=== PATIENT | male | born 2005 | race Caucasian/White ===

== ENCOUNTER 2024-04-16 11:37 | Inpatient (IN) | payer MEDICARE, MEDICAID ==
[~2024-04-16] VITALS: Ht 177.8 cm; Wt 189.2 kg
[2024-04-16] MEDS ORDERED: SERT-162 PO (12:06)
[2024-04-16] MEDS ORDERED: RISPC50 IM (12:06)
[2024-04-16] MEDS ORDERED: METF-1211 PO (12:06)
[2024-04-16] MEDS ORDERED: NALT50TA33 PO (12:06)
[2024-04-16] MEDS ORDERED: TRAZ150T80 PO (12:06)
[2024-04-16] MEDS ORDERED: PROP20TA18 PO (12:06)
[2024-04-16] MEDS ORDERED: PALI234D IM (12:06)
[2024-04-16 15:41] VITALS: BP 143/89; PULSE 95; RESP 17; TEMP 96.6; O2SAT 96
[2024-04-16] MEDS: INFLUENZA VIRUS VACCINE TVS (6MO+) 2024-25/PF 45 MCG/0.5 ML SYRINGE IM. ONE (16:15)
[2024-04-16] MEDS: LORazepam 2 MG TABLET PO PRN (16:29)
[2024-04-16 20:20] VITALS: BP 132/75; PULSE 91; RESP 18; TEMP 98.3; O2SAT 99
[2024-04-16] MEDS: ZOLPIDEM TARTRATE 10 MG TABLET PO PRN (20:44)
[2024-04-17 08:22] LABS: BASOPHILS % (AUTO) 0.6 % (0.0-2.0); EOSINOPHILS % (AUTO) 0.6 % (1.0-6.0); HEMATOCRIT 35.7 % (41-53); HEMOGLOBIN 11.6 g/dL (13.5-17.5); LYMPHOCYTES % (AUTO) 32.1 % (22.0-44.0); MEAN CORPUSCULAR HEMOGLOBIN 25.6 pg (26.0-34.0); MEAN CORPUSCULAR HGB CONC 32.4 G/dL (31.0-37.0); MEAN CORPUSCULAR VOLUME 79 fL (80-100); MONOCYTES # (AUTO) 0.7 K/uL (0.1-1.0); NEUTROPHILS # (AUTO) 5.4 K/uL (1.8-7.7); NEUTROPHILS % (AUTO) 58.7 % (40.0-70.0); PLATELET COUNT (AUTO) 264 K/uL (150-450); RED BLOOD CELL COUNT(AUTO) 4.51 MIL/uL (4.50-5.90); WHITE BLOOD COUNT (AUTO) 9.2 K/uL (4.5-11.0)
[2024-04-17 08:33] LABS: HEMOGLOBIN A1C 5.9 % (3.8-5.6)
[2024-04-17 08:52] LABS: ALANINE AMINOTRANSFERASE 35 U/L (12-78); ALBUMIN 3.4 g/dL (3.4-5.0); ALKALINE PHOSPHATASE 102 U/L (46-116); ANION GAP 8 mmol/L (8-16); ASPARTATE AMINOTRANSFERASE 17 U/L (15-37); BILIRUBIN,TOTAL 0.4 mg/dL (0.1-1.0); CALCIUM, TOTAL 8.7 mg/dL (8.8-10.5); CARBON DIOXIDE 28 mmol/L (22-29); CHLORIDE 106 mmol/L (98-107); CHOLESTEROL 157 mg/dL (131-200); CREATININE 0.85 mg/dL (0.60-1.30); FREE T4 (FREE THYROXINE) 1.16 ng/dL (0.76-1.46); GLOMERULAR FILTR. RATE CALC > 60 mL/min (>60); GLUCOSE,RANDOM 97 mg/dL (70-110); HDL CHOLESTEROL 39 mg/dL (40-60); LDL CHOL (CALC.) 102 mg/dL (0-130); POTASSIUM 3.9 mmol/L (3.5-5.1); SODIUM SERUM 142 mmol/L (136-145); T4 (THYROXINE) 8.1 mcg/dL (4.7-13.3); THYROID STIMULATING HORMONE 2.31 uIU/mL (0.36-3.74); TOTAL PROTEIN, SERUM 6.8 g/dL (6.4-8.2); TRIGLYCERIDES 79 mg/dL (15-150); UREA NITROGEN, BLOOD 9 mg/dL (7-18)
[2024-04-17 09:10] VITALS: BP 106/72; PULSE 60; RESP 16; TEMP 97.2; O2SAT 98
[2024-04-17] MEDS: PROPRANOLOL HCL 10 MG TABLET PO SCH (12:20)
[2024-04-17] MEDS: MetFORMIN HCL 500 MG TABLET PO SCH (16:03)
[2024-04-17 20:23] VITALS: BP 138/76; PULSE 86; RESP 18; TEMP 97.1; O2SAT 99
[2024-04-17] MEDS: TraZODone HCL 150 MG TABLET PO SCH (20:25)
[2024-04-17] MEDS: NALTREXONE HCL 50 MG TABLET PO SCH (20:26)
[2024-04-18 08:02] VITALS: BP 127/74; PULSE 69; RESP 17; TEMP 97.1; O2SAT 96
[2024-04-18] MEDS: SERTRALINE HCL 100 MG TABLET PO SCH (08:09)
[2024-04-18 20:33] VITALS: BP 134/72; PULSE 76; RESP 18; TEMP 98.4; O2SAT 97
[2024-04-19 08:22] VITALS: BP 127/60; PULSE 63; RESP 17; TEMP 98.2; O2SAT 96
[2024-04-19 12:55] LABS: APPEARANCE,URINE CLEAR (CLEAR); BILIRUBIN,URINE NEGATIVE (NEGATIVE); COLOR,URINE LIGHT YELLOW (YELLOW); GLUCOSE, URINE (UA) NEGATIVE (NEGATIVE); KETONES,URINE NEGATIVE (NEGATIVE); LEUKOCYTE ESTERASE ,URINE NEGATIVE (NEGATIVE); NITRATE,URINE NEGATIVE (NEGATIVE); OCCULT BLOOD,URINE NEGATIVE (NEGATIVE); PH,URINE 5.5 (5.0-8.0); PH,URINE DRUG SCREEN 5.5 (5.0-8.0); PROTEIN,URINE NEGATIVE (NEGATIVE); UROBILINOGEN,URINE <=1.0 mg/dL (<=1.0)
[2024-04-19 13:01] LABS: ALCOHOL, URINE DRUG SCREEN NEGATIVE (NEGATIVE); CANNABINOID SCREEN,URINE POSITIVE (NEGATIVE)
[2024-04-19 13:02] LABS: AMPHET/METH SCREEN,URINE NEGATIVE (NEGATIVE); BARBITURATE SCREEN, URINE NEGATIVE (NEGATIVE); BENZODIAZEPINES SCREEN,URINE NEGATIVE (NEGATIVE); COCAINE SCREEN,URINE NEGATIVE (NEGATIVE); METHADONE SCREEN, URINE NEGATIVE (NEGATIVE); OPIATE SCREEN,URINE NEGATIVE (NEGATIVE); PHENCYCLIDINE SCREEN,URINE NEGATIVE (NEGATIVE)
[2024-04-19] MEDS ORDERED: HydrOXYzine PAMOATE 50 MG CAPSULE PO PRN (17:45)
[2024-04-19] MEDS ORDERED: ACETAMINOPHEN 325 MG TABLET PO PRN (17:45)
[2024-04-19] MEDS ORDERED: LOPERAMIDE HCL 2 MG CAPSULE PO PRN (17:45)
[2024-04-19] MEDS ORDERED: MAGNESIUM HYDROXIDE SUSPENSION 30 ML UDCUP PO PRN (17:45)
[2024-04-19] MEDS ORDERED: GuaiFENesin/D-METHORPHAN [SUGAR-FREE] 200-20MG/10 ML SYRUP UDCUP PO PRN (17:45)
[2024-04-19 20:30] VITALS: BP 130/59; PULSE 77; RESP 18; TEMP 96.4; O2SAT 97
[2024-04-20 08:29] LABS: BASOPHILS % (AUTO) 0.5 % (0.0-2.0); EOSINOPHILS % (AUTO) 0.8 % (1.0-6.0); HEMATOCRIT 36.3 % (41-53); HEMOGLOBIN 11.8 g/dL (13.5-17.5); LYMPHOCYTES # (AUTO) 3.5 K/uL (1.0-4.8); LYMPHOCYTES % (AUTO) 36.2 % (22.0-44.0); MEAN CORPUSCULAR HEMOGLOBIN 25.8 pg (26.0-34.0); MEAN CORPUSCULAR HGB CONC 32.5 G/dL (31.0-37.0); MEAN CORPUSCULAR VOLUME 79 fL (80-100); MONOCYTES # (AUTO) 0.8 K/uL (0.1-1.0); MONOCYTES % (AUTO) 8.5 % (2.0-9.0); NEUTROPHILS # (AUTO) 5.3 K/uL (1.8-7.7); PLATELET COUNT (AUTO) 284 K/uL (150-450); RED BLOOD CELL COUNT(AUTO) 4.58 MIL/uL (4.50-5.90); RED CELL DISTRIBUTION WIDTH 15.8 % (11.5-14.5); WHITE BLOOD COUNT (AUTO) 9.8 K/uL (4.5-11.0)
[2024-04-20] MEDS: FOLIC ACID 1 MG TABLET PO SCH (08:32)
[2024-04-20] MEDS: MULTIVITAMINS WITH MINERALS, THERAPEUTIC TABLET PO SCH (08:32)
[2024-04-20] MEDS: DIVALPROEX SODIUM 500 MG ER TABLET PO SCH (08:33)
[2024-04-20] MEDS: THIAMINE 100 MG TABLET PO SCH (08:33)
[2024-04-20 08:40] VITALS: BP 113/64; PULSE 61; RESP 16; TEMP 97.9; O2SAT 96
[2024-04-20 08:48] LABS: HEMOGLOBIN A1C 5.9 % (3.8-5.6)
[2024-04-20 08:57] LABS: ALANINE AMINOTRANSFERASE 33 U/L (12-78); ALBUMIN 3.3 g/dL (3.4-5.0); ALKALINE PHOSPHATASE 96 U/L (46-116); ANION GAP 8 mmol/L (8-16); ASPARTATE AMINOTRANSFERASE 14 U/L (15-37); BILIRUBIN,TOTAL 0.3 mg/dL (0.1-1.0); CALCIUM, TOTAL 8.6 mg/dL (8.8-10.5); CARBON DIOXIDE 28 mmol/L (22-29); CHLORIDE 102 mmol/L (98-107); CHOL/HDL RATIO 3.8 (4.2-7.3); CHOLESTEROL 144 mg/dL (131-200); CREATININE 0.91 mg/dL (0.60-1.30); FREE T4 (FREE THYROXINE) 1.09 ng/dL (0.76-1.46); GLOMERULAR FILTR. RATE CALC > 60 mL/min (>60); GLUCOSE,RANDOM 86 mg/dL (70-110); HDL CHOLESTEROL 38 mg/dL (40-60); LDL CHOL (CALC.) 91 mg/dL (0-130); POTASSIUM 3.9 mmol/L (3.5-5.1); SODIUM SERUM 138 mmol/L (136-145); THYROID STIMULATING HORMONE 2.12 uIU/mL (0.36-3.74); TOTAL PROTEIN, SERUM 6.9 g/dL (6.4-8.2); TRIGLYCERIDES 76 mg/dL (15-150); UREA NITROGEN, BLOOD 7 mg/dL (7-18)
[2024-04-20] MEDS: PROMETHAZINE HCL 25 MG TABLET PO PRN (10:00)
[2024-04-20 17:00] VITALS: BP 114/60; PULSE 94; RESP 18; O2SAT 98
[2024-04-20] MEDS: TUBERCULIN, PURIFIED PROTEIN DERIVATIVE 5 TU/0.1 ML SYRINGE ID ONE (18:20)
[2024-04-20 20:14] VITALS: BP 114/60; PULSE 56; RESP 18; TEMP 96; O2SAT 99
[2024-04-21 08:08] VITALS: BP 122/60; PULSE 60; RESP 17; TEMP 96.9; O2SAT 95
[2024-04-21 16:30] VITALS: BP 128/72; PULSE 80; RESP 18
[2024-04-21] MEDS: VALPROIC ACID 250 MG/5 ML SOLUTION UDCUP PO SCH (19:04)
[2024-04-21 20:27] VITALS: BP 128/72; PULSE 80; RESP 17; TEMP 98.2; O2SAT 96
[2024-04-22 08:12] VITALS: BP 118/72; PULSE 86; RESP 17; TEMP 98.2; O2SAT 96
[2024-04-22 13:00] VITALS: BP 102/65; PULSE 95; RESP 18; O2SAT 96
[2024-04-22] MEDS ORDERED: LOPERAMIDE HCL 2 MG CAPSULE PO PRN (17:45)
[2024-04-22 20:22] VITALS: BP 120/84; PULSE 74; RESP 18; TEMP 97.5; O2SAT 97
[2024-04-22] MEDS: ESZOPICLONE 3 MG TABLET PO PRN (20:51)
[2024-04-23 08:56] VITALS: BP 100/60; PULSE 71; RESP 17; TEMP 97.3; O2SAT 95
[2024-04-23 20:45] VITALS: BP 131/78; PULSE 77; RESP 18; TEMP 98; O2SAT 99
[2024-04-24 09:23] VITALS: RESP 18
[2024-04-24 20:10] VITALS: BP 129/70; PULSE 67; RESP 16; TEMP 97.2; O2SAT 98
[2024-04-25 08:42] VITALS: RESP 18
[2024-04-25 09:13] VITALS: BP 120/67; PULSE 77; RESP 18; TEMP 97.6; O2SAT 97
[2024-04-25 12:36] VITALS: BP 101/62; PULSE 62; RESP 18
[2024-04-25 16:41] VITALS: BP 137/81; PULSE 89; RESP 18
[2024-04-25 21:32] VITALS: BP 125/75; PULSE 64; RESP 18; TEMP 97.1
[2024-04-26] MEDS: GABAPENTIN 300 MG CAPSULE PO PRN (00:26)
[2024-04-26] MEDS: MAG HYDROX/ALUMINUM HYD/SIMETH ES 30 ML SUSPENSION UDCUP PO PRN (02:40)
[2024-04-26 08:30] VITALS: BP 130/86; PULSE 82; RESP 17; TEMP 96.5; O2SAT 98
[2024-04-26] MEDS ORDERED: RISPC50 IM (17:14)
[2024-04-26] MEDS ORDERED: SERT-440 PO (17:14)
[2024-04-26] MEDS ORDERED: PROP10TA72 PO (17:14)
[2024-04-26] MEDS ORDERED: NALT50TA33 PO (17:14)
[2024-04-26] MEDS ORDERED: TRAZ-283 PO (17:14)
[2024-04-26] MEDS ORDERED: PALI234D IM (17:14)
[2024-04-26 20:16] VITALS: BP 109/62; PULSE 74; RESP 18; TEMP 97.8; O2SAT 96
[2024-04-27] MEDS: HALOPERIDOL 5 MG TABLET PO PRN (03:31)
[2024-04-27] MEDS: ONDANSETRON HCL 4 MG/2 ML VIAL IM PRN (10:20)
[2024-04-29] MEDS ORDERED: PALIPERIDONE PALMITATE 234 MG/1.5 ML SYRINGE IM SCH (09:00)
[2024-04-29] MEDS ORDERED: RisperiDONE MICROSPHERES 50 MG/2 ML SYRINGE IM SCH (09:00)
[2024-05-13] MEDS ORDERED: RisperiDONE MICROSPHERES 50 MG/2 ML SYRINGE IM SCH (09:00)
== END 2024-04-27 15:48 | disposition home or self-care (01) | DRG 885 ==
LOC: B2X 11:44
PROVIDERS: ADMIT Psychiatry & Neurology Psychiatry; ATTEND Psychiatry & Neurology Psychiatry
PROC: GZ56ZZZ Individual Psychotherapy, Supportive (ICD-10-PCS; principal; 2024-04-17)
DX: F20.9 Schizophrenia, unspecified (principal); E11.9 Type 2 diabetes mellitus without complications; I10 Essential (primary) hypertension; F10.10 Alcohol abuse, uncomplicated; F32.A Depression, unspecified; F41.9 Anxiety disorder, unspecified; Y90.0 Blood alcohol level of less than 20 mg/100 ml; D64.9 Anemia, unspecified; F19.10 Other psychoactive substance abuse, uncomplicated; Z88.0 Allergy status to penicillin
CPT/HCPCS: 80053; 80061; 80307; 81003; 83036; 84436; 84439; 84443; 85025; 86592; J2405

== ENCOUNTER 2024-05-11 10:51 | Inpatient (IN) | payer MEDICARE, MEDICAID ==
[~2024-05-11] VITALS: Ht 177.8 cm; Wt 180.6 kg
[~2024-05-11 10:51] MED LIST: METF-1211 PO; NALT50TA33 PO; PALI234D IM; PROP10TA72 PO; RISPC50 IM; SERT-440 PO; TRAZ-283 PO
[2024-05-11 12:45] VITALS: BP 147/97; PULSE 97; RESP 18; TEMP 97; O2SAT 97
[2024-05-11] MEDS ORDERED: LORazepam 2 MG TABLET PO PRN (13:00)
[2024-05-11] MEDS ORDERED: ACETAMINOPHEN 325 MG TABLET PO PRN (13:00)
[2024-05-11] MEDS ORDERED: LOPERAMIDE HCL 2 MG CAPSULE PO PRN (13:00)
[2024-05-11] MEDS ORDERED: HydrOXYzine PAMOATE 50 MG CAPSULE PO PRN (13:00)
[2024-05-11] MEDS ORDERED: MAGNESIUM HYDROXIDE SUSPENSION 30 ML UDCUP PO PRN (13:00)
[2024-05-11] MEDS ORDERED: PROMETHAZINE HCL 25 MG TABLET PO PRN (13:00)
[2024-05-11] MEDS ORDERED: GuaiFENesin/D-METHORPHAN [SUGAR-FREE] 200-20MG/10 ML SYRUP UDCUP PO PRN (13:00)
[2024-05-11] MEDS ORDERED: ZOLPIDEM TARTRATE 10 MG TABLET PO PRN (13:00)
[2024-05-11 14:20] VITALS: BP 158/89; PULSE 89; RESP 16; TEMP 97.9; O2SAT 97
[2024-05-11] MEDS ORDERED: GLUCAGON,HUMAN RECOMBINANT 1 MG VIAL IM PRN (15:45)
[2024-05-11] MEDS: HALOPERIDOL DECANOATE 100 MG/ML VIAL IM ONE (15:53)
[2024-05-11] MEDS: INSULIN LISPRO 100 UNITS/ML SQ PRN (16:29)
[2024-05-11] MEDS: THIAMINE 100 MG TABLET PO SCH (16:30)
[2024-05-11] MEDS: BENZTROPINE MESYLATE 2 MG TABLET PO SCH (16:30)
[2024-05-11 16:31] VITALS: BP 145/88; PULSE 88; RESP 18
[2024-05-11] MEDS: PROPRANOLOL HCL 10 MG TABLET PO SCH (16:31)
[2024-05-11 16:35] LABS: GLUCOMETER DEV NAME(LOC) BV2X.3; GLUCOSE,POINT OF CARE 146 MG/DL (70-110)
[2024-05-11 20:00] VITALS: BP 139/94; PULSE 79; RESP 16; TEMP 97.2; O2SAT 98
[2024-05-11] MEDS: MELATONIN 5 MG TABLET PO SCH (20:38)
[2024-05-11] MEDS: TraZODone HCL 100 MG TABLET PO SCH (20:39)
[2024-05-11] MEDS: NALTREXONE HCL 50 MG TABLET PO SCH (20:39)
[2024-05-12] MEDS: MetFORMIN HCL 500 MG TABLET PO SCH (06:38)
[2024-05-12 07:22] LABS: GLUCOMETER DEV NAME(LOC) BV2X.3; GLUCOSE,POINT OF CARE 99 MG/DL (70-110)
[2024-05-12] MEDS: FOLIC ACID 1 MG TABLET PO SCH (08:09)
[2024-05-12] MEDS: MULTIVITAMINS WITH MINERALS, THERAPEUTIC TABLET PO SCH (08:09)
[2024-05-12] MEDS: SERTRALINE HCL 100 MG TABLET PO SCH (08:09)
[2024-05-12 08:15] VITALS: BP 140/90; PULSE 98; RESP 18; TEMP 98.3; O2SAT 97
[2024-05-12 08:25] LABS: BASOPHILS % (AUTO) 0.5 % (0.0-2.0); EOSINOPHILS % (AUTO) 0.7 % (1.0-6.0); HEMATOCRIT 39.5 % (41-53); HEMOGLOBIN 12.8 g/dL (13.5-17.5); LYMPHOCYTES # (AUTO) 4.7 K/uL (1.0-4.8); LYMPHOCYTES % (AUTO) 34.3 % (22.0-44.0); MEAN CORPUSCULAR HGB CONC 32.3 G/dL (31.0-37.0); MEAN CORPUSCULAR VOLUME 81 fL (80-100); MONOCYTES # (AUTO) 0.7 K/uL (0.1-1.0); MONOCYTES % (AUTO) 5.4 % (2.0-9.0); NEUTROPHILS % (AUTO) 59.1 % (40.0-70.0); PLATELET COUNT (AUTO) 345 K/uL (150-450); RED CELL DISTRIBUTION WIDTH 16.6 % (11.5-14.5); WHITE BLOOD COUNT (AUTO) 13.6 K/uL (4.5-11.0)
[2024-05-12 08:31] LABS: HEMOGLOBIN A1C 5.6 % (3.8-5.6)
[2024-05-12 09:07] LABS: ALANINE AMINOTRANSFERASE 23 U/L (12-78); ALBUMIN 3.5 g/dL (3.4-5.0); ALKALINE PHOSPHATASE 110 U/L (46-116); ANION GAP 7 mmol/L (8-16); ASPARTATE AMINOTRANSFERASE 11 U/L (15-37); BILIRUBIN,TOTAL 0.7 mg/dL (0.1-1.0); CALCIUM, TOTAL 8.9 mg/dL (8.8-10.5); CARBON DIOXIDE 29 mmol/L (22-29); CHLORIDE 101 mmol/L (98-107); CHOL/HDL RATIO 3.7 (4.2-7.3); CHOLESTEROL 171 mg/dL (131-200); CREATININE 0.95 mg/dL (0.60-1.30); GLOMERULAR FILTR. RATE CALC > 60 mL/min (>60); GLUCOSE,RANDOM 101 mg/dL (70-110); HDL CHOLESTEROL 46 mg/dL (40-60); LDL CHOL (CALC.) 109 mg/dL (0-130); POTASSIUM 3.9 mmol/L (3.5-5.1); SODIUM SERUM 137 mmol/L (136-145); THYROID STIMULATING HORMONE 3.29 uIU/mL (0.36-3.74); TOTAL PROTEIN, SERUM 7.7 g/dL (6.4-8.2); TRIGLYCERIDES 80 mg/dL (15-150); UREA NITROGEN, BLOOD 10 mg/dL (7-18)
[2024-05-12] MEDS ORDERED: GABAPENTIN 300 MG CAPSULE PO PRN (15:30)
[2024-05-12 16:45] LABS: GLUCOMETER DEV NAME(LOC) BV2X.3; GLUCOSE,POINT OF CARE 97 MG/DL (70-110)
[2024-05-12 21:15] VITALS: BP 121/57; PULSE 74; RESP 18; TEMP 98.9; O2SAT 97
[2024-05-12 22:16] LABS: GLUCOMETER DEV NAME(LOC) BV2X.3; GLUCOSE,POINT OF CARE 110 MG/DL (70-110)
[2024-05-13 08:13] VITALS: BP 139/73; PULSE 78; RESP 16; TEMP 97.3; O2SAT 97
[2024-05-13] MEDS: CloZAPine 25 MG TABLET PO SCH (08:23)
[2024-05-13] MEDS: INFLUENZA VIRUS VACCINE TVS (6MO+) 2024-25/PF 45 MCG/0.5 ML SYRINGE IM. ONE (08:35)
[2024-05-13 16:45] VITALS: BP 121/72; PULSE 69; RESP 16; O2SAT 100
[2024-05-13 17:45] LABS: GLUCOMETER DEV NAME(LOC) BV2X.3; GLUCOSE,POINT OF CARE 100 MG/DL (70-110)
[2024-05-13 20:02] VITALS: BP 109/69; PULSE 78; RESP 18; TEMP 97.3; O2SAT 98
[2024-05-14 06:26] LABS: GLUCOMETER DEV NAME(LOC) BV2X.3; GLUCOSE,POINT OF CARE 98 MG/DL (70-110)
[2024-05-14 08:12] VITALS: BP 112/61; PULSE 68; RESP 16; TEMP 98; O2SAT 98
[2024-05-14] MEDS: CloZAPine 25 MG TABLET PO SCH ×2 (08:16→20:10)
[2024-05-14 16:13] VITALS: BP 114/68; PULSE 64; RESP 16; O2SAT 97
[2024-05-14 16:56] LABS: GLUCOMETER DEV NAME(LOC) BV2X.3; GLUCOSE,POINT OF CARE 83 MG/DL (70-110)
[2024-05-14 21:17] VITALS: BP 127/68; PULSE 78; RESP 18; TEMP 97.3; O2SAT 98
[2024-05-15 08:39] VITALS: BP 139/75; PULSE 89; RESP 18; TEMP 97.2; O2SAT 99
[2024-05-15] MEDS: CloZAPine 25 MG TABLET PO SCH ×2 (09:01→20:35)
[2024-05-15 13:41] LABS: GLUCOMETER DEV NAME(LOC) BV2X.3; GLUCOSE,POINT OF CARE 118 MG/DL (70-110)
[2024-05-15 20:00] VITALS: BP 129/74; PULSE 72; RESP 18; TEMP 98.9; O2SAT 98
[2024-05-16] MEDS: CloZAPine 25 MG TABLET PO SCH (09:56)
[2024-05-16 15:07] VITALS: BP 131/80; PULSE 76; RESP 17; TEMP 97.5; O2SAT 98
[2024-05-16 21:40] VITALS: BP 135/88; PULSE 87; RESP 18; TEMP 98.4; O2SAT 96
[2024-05-17 09:04] VITALS: BP 117/70; PULSE 78; RESP 18; TEMP 96.9; O2SAT 95
[2024-05-17 11:25] LABS: GLUCOMETER DEV NAME(LOC) BV2X.3; GLUCOSE,POINT OF CARE 92 MG/DL (70-110)
[2024-05-17 16:51] LABS: GLUCOMETER DEV NAME(LOC) BV2X.3; GLUCOSE,POINT OF CARE 109 MG/DL (70-110)
[2024-05-17 20:25] VITALS: BP 114/85; PULSE 82; RESP 18; TEMP 97.3; O2SAT 99
[2024-05-17 20:51] LABS: GLUCOMETER DEV NAME(LOC) BV2X.3; GLUCOSE,POINT OF CARE 90 MG/DL (70-110)
[2024-05-17] MEDS: MAG HYDROX/ALUMINUM HYD/SIMETH ES 30 ML SUSPENSION UDCUP PO PRN (21:14)
[2024-05-18] MEDS: CloZAPine 25 MG TABLET PO SCH (09:04)
[2024-05-18 12:11] LABS: GLUCOMETER DEV NAME(LOC) BV2X.3; GLUCOSE,POINT OF CARE 83 MG/DL (70-110)
[2024-05-18 12:16] VITALS: BP 139/75; PULSE 85; RESP 18; TEMP 98.2; O2SAT 98
[2024-05-18 16:40] VITALS: BP 127/91; PULSE 89; RESP 18
[2024-05-18 20:21] VITALS: BP 124/61; PULSE 96; RESP 18; TEMP 97.5; O2SAT 100
[2024-05-18] MEDS: CloZAPine 100 MG TABLET PO SCH (21:52)
[2024-05-18] MEDS: DIVALPROEX SODIUM 500 MG ER TABLET PO SCH (21:53)
[2024-05-19] MEDS: CloZAPine 25 MG TABLET PO SCH (09:04)
[2024-05-19 09:05] LABS: BASOPHILS % (AUTO) 0.8 % (0.0-2.0); EOSINOPHILS % (AUTO) 1.6 % (1.0-6.0); HEMATOCRIT 38.4 % (41-53); HEMOGLOBIN 12.5 g/dL (13.5-17.5); LYMPHOCYTES # (AUTO) 3.7 K/uL (1.0-4.8); LYMPHOCYTES % (AUTO) 39.1 % (22.0-44.0); MEAN CORPUSCULAR HEMOGLOBIN 26.3 pg (26.0-34.0); MEAN CORPUSCULAR HGB CONC 32.6 G/dL (31.0-37.0); MEAN CORPUSCULAR VOLUME 80 fL (80-100); MONOCYTES # (AUTO) 0.7 K/uL (0.1-1.0); NEUTROPHILS # (AUTO) 4.8 K/uL (1.8-7.7); NEUTROPHILS % (AUTO) 51.5 % (40.0-70.0); PLATELET COUNT (AUTO) 297 K/uL (150-450); RED BLOOD CELL COUNT(AUTO) 4.78 MIL/uL (4.50-5.90); RED CELL DISTRIBUTION WIDTH 16.1 % (11.5-14.5); WHITE BLOOD COUNT (AUTO) 9.4 K/uL (4.5-11.0)
[2024-05-19 16:43] VITALS: BP 130/63; PULSE 69; RESP 18
[2024-05-19] MEDS: CloZAPine 100 MG TABLET PO SCH (21:36)
[2024-05-19 21:48] VITALS: BP_SYST 116; BP_SYST 128; BP_DIAS 67; BP_DIAS 70; PULSE 87; PULSE 89; RESP 18; TEMP 98.1; TEMP 98.6; O2SAT 96
[2024-05-20 08:50] VITALS: BP 112/61; PULSE 89; RESP 17; TEMP 97.7; O2SAT 96
[2024-05-20] MEDS: CloZAPine 25 MG TABLET PO SCH (09:01)
[2024-05-20 17:00] VITALS: BP 135/87; PULSE 79; RESP 18; TEMP 97.3; O2SAT 98
[2024-05-20] MEDS: CloZAPine 100 MG TABLET PO SCH (21:37)
[2024-05-21 09:14] VITALS: BP 137/86; PULSE 90; RESP 16; TEMP 98.6; O2SAT 98
[2024-05-21] MEDS: CloZAPine 100 MG TABLET PO SCH (09:14)
[2024-05-21 16:15] VITALS: BP 137/61; PULSE 95; RESP 16; O2SAT 97
[2024-05-21 20:46] VITALS: BP 127/72; PULSE 83; RESP 18; TEMP 97.2; O2SAT 99
[2024-05-22 10:28] VITALS: BP 116/67; PULSE 83; RESP 18; TEMP 97.4; O2SAT 96
[2024-05-22] MEDS: OLANZapine 5 MG RAPDIS TABLET PO PRN (13:57)
[2024-05-22 16:40] VITALS: BP 132/69; PULSE 85; RESP 16; O2SAT 98
[2024-05-22 20:00] VITALS: BP 128/67; PULSE 80; RESP 18; TEMP 97.7; O2SAT 98
[2024-05-22] MEDS: VALPROIC ACID 250 MG/5 ML SOLUTION UDCUP PO SCH (21:42)
[2024-05-23] MEDS: CloZAPine 25 MG TABLET PO SCH (08:48)
[2024-05-23 08:58] VITALS: BP 145/76; PULSE 90; RESP 18; TEMP 98.1; O2SAT 90
[2024-05-23 16:40] VITALS: BP 140/72; PULSE 81; RESP 16; O2SAT 98
[2024-05-23] MEDS: CloZAPine 100 MG TABLET PO SCH (21:32)
[2024-05-24] MEDS: CloZAPine 25 MG TABLET PO SCH (09:02)
[2024-05-24 10:26] VITALS: BP 127/78; PULSE 77; RESP 17; TEMP 97.7; O2SAT 96
[2024-05-24] MEDS ORDERED: MELA5TAB40 PO (15:05)
[2024-05-24] MEDS ORDERED: PROP10TA72 PO (15:05)
[2024-05-24] MEDS ORDERED: VALP250S23 PO (15:05)
[2024-05-24] MEDS ORDERED: TRAZ-257 PO (15:05)
[2024-05-24] MEDS ORDERED: CLOZ100T61 PO (15:05)
[2024-05-24 20:36] VITALS: BP 127/76; PULSE 96; RESP 16; TEMP 98.6; O2SAT 98
[2024-05-24] MEDS ORDERED: CloZAPine 100 MG TABLET PO SCH (21:00)
[2024-05-24] MEDS: CloZAPine 100 MG TABLET PO SCH (21:38)
[2024-05-25 08:27] VITALS: BP 138/67; PULSE 88; RESP 14; TEMP 96.8; O2SAT 95
[2024-05-25] MEDS ORDERED: CloZAPine 100 MG TABLET PO SCH ×2 (09:00→21:00)
[2024-05-25] MEDS ORDERED: HALOPERIDOL DECANOATE 100 MG/ML VIAL IM SCH (09:00)
[2024-05-26 12:06] LABS: CLOZAPINE & NORCLOZAPINE 371 ng/mL; NORCLOZAPINE 99 ng/mL (Not Estab.)
[2024-05-31] MEDS ORDERED: PALIPERIDONE PALMITATE 234 MG/1.5 ML SYRINGE IM SCH (09:00)
== END 2024-05-25 12:15 | disposition home or self-care (01) | DRG 885 ==
LOC: B2X 14:04
PROVIDERS: ADMIT Psychiatry & Neurology Psychiatry; ATTEND Psychiatry & Neurology Psychiatry
PROC: GZHZZZZ Group Psychotherapy (ICD-10-PCS; principal; 2024-05-11)
PROC: GZ58ZZZ Individual Psychotherapy, Cognitive-Behavioral (ICD-10-PCS; 2024-05-11)
PROC: GZ56ZZZ Individual Psychotherapy, Supportive (ICD-10-PCS; 2024-05-11)
DX: F25.0 Schizoaffective disorder, bipolar type (principal); G93.41 Metabolic encephalopathy; Z68.43 Body mass index [BMI] 50.0-59.9, adult; E66.01 Morbid (severe) obesity due to excess calories; E11.9 Type 2 diabetes mellitus without complications; I10 Essential (primary) hypertension; D64.9 Anemia, unspecified; F84.0 Autistic disorder; Z88.0 Allergy status to penicillin; D72.819 Decreased white blood cell count, unspecified; Z59.9 Problem related to housing and economic circumstances, unspecified; Z63.9 Problem related to primary support group, unspecified; Z65.3 Problems related to other legal circumstances; Z91.199 Patient's noncompliance with other medical treatment and regimen due to unspecified reason
CPT/HCPCS: 80053; 80061; 80159; 80164; 82962; 83036; 84443; 85025; 87081; 90686; J1631

== ENCOUNTER → 2024-06-22 | Outpatient (CLI) | payer MEDICARE, OTHER ==
[~2024-06-22] MED LIST changes: +CLOZ100T61 PO; +MELA5TAB40 PO; -PALI234D IM; -RISPC50 IM; +TRAZ-257 PO; -TRAZ-283 PO; +VALP250S23 PO
[2024-06-22 15:33] LABS: BASOPHILS % (AUTO) 1.2 % (0.0-2.0); EOSINOPHILS % (AUTO) 1.9 % (1.0-6.0); HEMATOCRIT 37.5 % (41-53); HEMOGLOBIN 11.9 g/dL (13.5-17.5); LYMPHOCYTES # (AUTO) 2.7 K/uL (1.0-4.8); LYMPHOCYTES % (AUTO) 25.6 % (22.0-44.0); MEAN CORPUSCULAR HGB CONC 31.8 G/dL (31.0-37.0); MEAN CORPUSCULAR VOLUME 82 fL (80-100); MONOCYTES # (AUTO) 0.6 K/uL (0.1-1.0); MONOCYTES % (AUTO) 5.7 % (2.0-9.0); NEUTROPHILS # (AUTO) 6.9 K/uL (1.8-7.7); NEUTROPHILS % (AUTO) 65.6 % (40.0-70.0); PLATELET COUNT (AUTO) 315 K/uL (150-450); RED BLOOD CELL COUNT(AUTO) 4.59 MIL/uL (4.50-5.90); RED CELL DISTRIBUTION WIDTH 16.7 % (11.5-14.5); WHITE BLOOD COUNT (AUTO) 10.6 K/uL (4.5-11.0)
== END | disposition home or self-care (01) ==
LOC: LABMN 10:35
PROVIDERS: ATTEND Psychiatry & Neurology Psychiatry
DX: F20.9 Schizophrenia, unspecified (principal)
CPT/HCPCS: 85025

== ENCOUNTER → 2024-06-29 | Outpatient (CLI) | payer MEDICARE, OTHER ==
[2024-06-29 19:57] LABS: BASOPHILS % (AUTO) 0.9 % (0.0-2.0); EOSINOPHILS % (AUTO) 3.3 % (1.0-6.0); HEMATOCRIT 37.4 % (41-53); LYMPHOCYTES # (AUTO) 1.6 K/uL (1.0-4.8); LYMPHOCYTES % (AUTO) 16.7 % (22.0-44.0); MEAN CORPUSCULAR HEMOGLOBIN 26.5 pg (26.0-34.0); MEAN CORPUSCULAR HGB CONC 32.1 G/dL (31.0-37.0); MEAN CORPUSCULAR VOLUME 82 fL (80-100); MONOCYTES # (AUTO) 0.8 K/uL (0.1-1.0); MONOCYTES % (AUTO) 7.8 % (2.0-9.0); NEUTROPHILS # (AUTO) 6.9 K/uL (1.8-7.7); NEUTROPHILS % (AUTO) 71.3 % (40.0-70.0); PLATELET COUNT (AUTO) 319 K/uL (150-450); RED BLOOD CELL COUNT(AUTO) 4.54 MIL/uL (4.50-5.90); RED CELL DISTRIBUTION WIDTH 16.2 % (11.5-14.5); WHITE BLOOD COUNT (AUTO) 9.7 K/uL (4.5-11.0)
== END | disposition home or self-care (01) ==
LOC: LABMN 11:45
PROVIDERS: ATTEND Psychiatry & Neurology Psychiatry
DX: F20.9 Schizophrenia, unspecified (principal)
CPT/HCPCS: 85025